=== PATIENT | female | born 1945 | race African-American/Black ===

== ENCOUNTER 2018-10-26 07:21 | Emergency (ER) | payer MEDICARE, OTHER ==
[~2018-10-26] VITALS: Ht 167.6 cm; Wt 56.5 kg
[~2018-10-26 07:21] MED LIST: HYDR25TA PO
[2018-10-26] MEDS ORDERED: ONDANSETRON HCL 4MG/2ML INJ IV STA (08:05)
[2018-10-26] MEDS ORDERED: ASPIRIN 81MG TABLET PO ONE (08:15)
[2018-10-26 08:24] LABS: HEMATOCRIT. 36.8 % (36.0-48.0); HEMOGLOBIN. 12.1 g/dL (12.0-16.0); MEAN CORPUSCULAR HEMOGLOBIN 26.9 pg (28.0-32.0); MEAN CORPUSCULAR VOLUME 82.3 fL (81.0-99.0); PLATELET 253 x1000/uL (130-400); RED BLOOD CELL COUNT 4.48 mill/uL (4.2-5.4); RED CELL DISTRIBUTION WIDTH 18.4 % (11.6-14.6)
[2018-10-26 08:27] LABS: CHLORIDE 108 mEq/L (98-107)
[2018-10-26 08:53] LABS: PLATELET ESTIMATE NORMAL
[2018-10-26] MEDS ORDERED: KETOROLAC 15MG/ML VIAL IV ONE (09:15)
[2018-10-26 12:15] VITALS: BP 126/79
== END 2018-10-26 12:16 | disposition home or self-care (01) ==
LOC: ER 07:45
DX: R07.89 Other chest pain (principal); B34.9 Viral infection, unspecified; I10 Essential (primary) hypertension; Z86.73 Personal history of transient ischemic attack (TIA), and cerebral infarction without residual deficits; Z98.890 Other specified postprocedural states; Z88.5 Allergy status to narcotic agent; Z91.040 Latex allergy status; Z79.899 Other long term (current) drug therapy
CPT/HCPCS: 36415; 71045; 80053; 83880; 84484; 85025; 87804; 93005; 96374; 99284; J1885; J2405

== ENCOUNTER 2020-09-21 12:11 | Emergency (ER) | payer OTHER ==
[~2020-09-21] VITALS: Ht 172.7 cm; Wt 59.0 kg
[2020-09-21] MEDS ORDERED: ACETAMINOPHEN 500MG TABLET PO ONE (13:45)
[2020-09-21] MEDS ORDERED: TOPUD MT (15:03)
[2020-09-21 15:21] VITALS: BP 162/99
== END 2020-09-21 15:21 | disposition home or self-care (01) ==
LOC: ER 12:11
DX: S39.012A Strain of muscle, fascia and tendon of lower back, initial encounter (principal); I10 Essential (primary) hypertension; Z88.0 Allergy status to penicillin; Z91.040 Latex allergy status; Z88.5 Allergy status to narcotic agent; Z98.890 Other specified postprocedural states; W18.30XA Fall on same level, unspecified, initial encounter; Y93.89 Activity, other specified; Y92.89 Other specified places as the place of occurrence of the external cause; Y99.8 Other external cause status
CPT/HCPCS: 72100; 93005; 99283

== ENCOUNTER 2020-11-22 15:44 | Inpatient (IN) | payer OTHER ==
[~2020-11-22] VITALS: Ht 170.2 cm; Wt 52.2 kg
[~2020-11-22 15:44] MED LIST changes: +TOPUD MT
[2020-11-22 19:05] LABS: BASOPHILS % 0.3 % (0.0-2.0); EOSINOPHILS % 1.2 % (0.0-5.0); LYMPHOCYTES % 31.5 % (20.0-50.0); MEAN CORPUSCULAR HEMOGLOBIN 34.5 pg (28.0-32.0); MEAN CORPUSCULAR VOLUME 99.3 fL (81.0-99.0); MEAN PLATELET VOLUME 8.7 fl (7.4-10.4); PLATELET 181 x1000/uL (130-400); RED BLOOD CELL COUNT 1.79 mill/uL (4.2-5.4); RED CELL DISTRIBUTION WIDTH 41.8 % (11.6-14.6)
[2020-11-22 19:11] LABS: CHLORIDE 107 mEq/L (98-107)
[2020-11-22 19:14] LABS: INR 1.1; PROTHROMBIN TIME 11.4 sec (9.6-11.0)
[2020-11-22 19:17] LABS: HEMATOCRIT. 17.8 % (36.0-48.0); HEMOGLOBIN. 6.2 g/dL (12.0-16.0)
[2020-11-22 19:40] LABS: PLATELET ESTIMATE NORMAL
[2020-11-22 20:40] LABS: TOTAL IRON BINDING CAPACITY 167 ug/dL (250-450)
[2020-11-23] VITALS (11 sets, daily range): BP systolic 111–151; BP diastolic 63–89
[2020-11-23] MEDS: PANTOPRAZOLE 40MG DR TABLET PO SCH (06:46)
[2020-11-23 06:56] LABS: MEAN CORPUSCULAR VOLUME 98.3 fL (81.0-99.0); MEAN PLATELET VOLUME 8.9 fl (7.4-10.4); PLATELET 156 x1000/uL (130-400); RED BLOOD CELL COUNT 2.11 mill/uL (4.2-5.4); RED CELL DISTRIBUTION WIDTH 36.3 % (11.6-14.6)
[2020-11-23 07:08] LABS: HEMATOCRIT. 20.7 % (36.0-48.0)
[2020-11-23] MEDS: POTASSIUM CHLORIDE 20MEQ TABLET SR PO SCH (08:33)
[2020-11-23] MEDS ORDERED: DIPHENHYDRAMINE 50MG/ML VIAL IV PRN (15:30)
[2020-11-23] MEDS ORDERED: BISACODYL 10MG SUPP PR PRN (15:30)
[2020-11-23] MEDS ORDERED: LORAZEPAM 2MG/ML CPJ IV PRN (15:30)
[2020-11-23] MEDS ORDERED: IPRATROPIUM/ALBUTEROL 0.5-3(2.5)MG/3ML NEB HHN PRN (15:30)
[2020-11-23] MEDS ORDERED: ONDANSETRON HCL 4MG/2ML INJ IV PRN (15:30)
[2020-11-23 15:38] LABS: CLARITY URINE CLEAR (CLEAR); COLOR URINE YELLOW (YELLOW); KETONES URINE NEGATIVE (NEGATIVE); LEUKOCYTE ESTERASE URINE NEGATIVE (NEGATIVE); NITRITE URINE NEGATIVE (NEGATIVE); OCCULT BLOOD URINE NEGATIVE (NEGATIVE); PH URINE 7.5 (4.5-8.0); PROTEIN URINE NEGATIVE (NEGATIVE); SPECIFIC GRAVITY URINE 1.012 (1.005-1.030)
[2020-11-23] MEDS: DEXT 5%/0.45% NACL KCL 20MEQ/L 1,000 ML IV SCH (17:54)
[2020-11-23 18:13] LABS: HEMATOCRIT 22.9 % (36.0-48.0)
[2020-11-23 18:17] LABS: CHLORIDE 108 mEq/L (98-107)
[2020-11-23 18:25] LABS: LDL CHOLESTEROL 77 mg/dL (5-100); TOTAL IRON BINDING CAPACITY 199 ug/dL (250-450)
[2020-11-23 18:26] LABS: HDL CHOLESTEROL 47 mg/dL (40-59)
[2020-11-23 18:48] LABS: VITAMIN B12 SERUM < 60 pg/mL (211-911)
[2020-11-23] MEDS ORDERED: LACTULOSE 20G/30ML UDC PO PRN (21:00)
[2020-11-23] MEDS ORDERED: TEMAZEPAM 15MG CAPSULE PO PRN (21:00)
[2020-11-24] VITALS (15 sets, daily range): BP systolic 122–146; BP diastolic 74–81
[2020-11-24] MEDS: DEXT 5%/0.45% NACL KCL 20MEQ/L 1,000 ML IV SCH ×2 (06:50→18:44)
[2020-11-24] MEDS: PANTOPRAZOLE 40MG DR TABLET PO SCH (07:02)
[2020-11-24] MEDS ORDERED: LIDOCAINE HCL 1% 20ML VIAL (Pyxis) INJ ONE (07:36)
[2020-11-24] MEDS ORDERED: IOHEXOL-300 100 ML BOTTLE ONE (07:36)
[2020-11-24] MEDS ORDERED: CLINDAMYCIN 600MG PREMIX 50 ML IV NR (08:00)
[2020-11-24] MEDS: POTASSIUM CHLORIDE 20MEQ TABLET SR PO SCH (09:55)
[2020-11-24 11:02] LABS: PLATELET ESTIMATE NORMAL
[2020-11-24] MEDS: ACETAMINOPHEN 325MG TABLET PO PRN (12:29)
[2020-11-24] MEDS ORDERED: LACTULOSE 20G/30ML UDC PO SCH (16:00)
[2020-11-24] MEDS: PANTOPRAZOLE SODIUM 40 MG/VIAL IV SCH (16:18)
[2020-11-25] VITALS (10 sets, daily range): BP systolic 123–159; BP diastolic 72–89
[2020-11-25 07:18] LABS: INR 1.1; PARTIAL THROMBOPLASTIN TIME 25.8 sec (23.4-31.0); PROTHROMBIN TIME 11.9 sec (9.6-11.0)
[2020-11-25 07:33] LABS: CHLORIDE 110 mEq/L (98-107)
[2020-11-25 08:01] LABS: HEMATOCRIT. 22.5 % (36.0-48.0); HEMOGLOBIN. 7.8 g/dL (12.0-16.0); MEAN CORPUSCULAR HEMOGLOBIN 32.8 pg (28.0-32.0); MEAN PLATELET VOLUME 8.9 fl (7.4-10.4); PLATELET 111 x1000/uL (130-400); RED BLOOD CELL COUNT 2.37 mill/uL (4.2-5.4); RED CELL DISTRIBUTION WIDTH 32.7 % (11.6-14.6)
[2020-11-25] MEDS: PANTOPRAZOLE SODIUM 40 MG/VIAL IV SCH ×2 (08:36→17:00)
[2020-11-25] MEDS: POTASSIUM CHLORIDE 20MEQ TABLET SR PO SCH (08:36)
[2020-11-25] MEDS: DEXT 5%/0.45% NACL KCL 20MEQ/L 1,000 ML IV SCH ×2 (08:37→22:07)
[2020-11-25 13:51] LABS: PLATELET ESTIMATE DECREASED
[2020-11-25] MEDS ORDERED: PROPOFOL 200MG/20ML VIAL IV ONE (16:41)
[2020-11-25] MEDS ORDERED: LIDOCAINE HCL/PF 1% 10 MG/ML 5ML VIAL ONE (16:41)
[2020-11-25 21:29] LABS: HEMATOCRIT 26.5 % (36.0-48.0); HEMOGLOBIN 9.5 g/dL (12.0-16.0)
[2020-11-26] VITALS: BP 126/96
[2020-11-26 04:00] VITALS: BP 143/86
[2020-11-26 06:07] LABS: CHLORIDE 107 mEq/L (98-107)
[2020-11-26 06:23] LABS: HEMATOCRIT. 28.1 % (36.0-48.0); MEAN CORPUSCULAR HEMOGLOBIN 33.2 pg (28.0-32.0); MEAN CORPUSCULAR VOLUME 93.6 fL (81.0-99.0); MEAN PLATELET VOLUME 9.2 fl (7.4-10.4); PLATELET 95 x1000/uL (130-400); RED CELL DISTRIBUTION WIDTH 25.6 % (11.6-14.6)
[2020-11-26 08:00] VITALS: BP 149/86
[2020-11-26] MEDS: POTASSIUM CHLORIDE 20MEQ TABLET SR PO SCH (09:00)
[2020-11-26] MEDS: PANTOPRAZOLE SODIUM 40 MG/VIAL IV SCH ×2 (09:00→16:47)
[2020-11-26 12:00] VITALS: BP 142/85
[2020-11-26] MEDS: DEXT 5%/0.45% NACL KCL 20MEQ/L 1,000 ML IV SCH (12:07)
[2020-11-26] MEDS ORDERED: BARIUM SULFATE 176 GM SUSP.RECON ONE (13:22)
[2020-11-26] MEDS ORDERED: EZ-HD SUSPENSION(BARIUM SULFATE 340GM) PO ONE (13:22)
[2020-11-26] MEDS ORDERED: SIMETHICONE/SOD BICARB/CIT AC 1 EACH GRAN.EF.PK ONE (13:23)
[2020-11-26 16:00] VITALS: BP 170/98
[2020-11-26] MEDS: CLONIDINE 0.1MG TABLET PO PRN (16:57)
[2020-11-26] MEDS ORDERED: CYANOCOBALAMIN 1000MCG/ML VIAL IM NR (17:00)
[2020-11-26 21:28] VITALS: BP 129/76
[2020-11-27] VITALS: BP 120/72
[2020-11-27 00:14] LABS: PLATELET ESTIMATE DECREASED
[2020-11-27] MEDS: DEXT 5%/0.45% NACL KCL 20MEQ/L 1,000 ML IV SCH ×2 (00:30→17:26)
[2020-11-27 04:00] VITALS: BP 128/78
[2020-11-27 07:13] LABS: HEMATOCRIT. 27.7 % (36.0-48.0); HEMOGLOBIN. 9.7 g/dL (12.0-16.0); MEAN CORPUSCULAR VOLUME 94.5 fL (81.0-99.0); MEAN PLATELET VOLUME 9.9 fl (7.4-10.4); PLATELET 86 x1000/uL (130-400); RED BLOOD CELL COUNT 2.94 mill/uL (4.2-5.4); RED CELL DISTRIBUTION WIDTH 24.8 % (11.6-14.6)
[2020-11-27 07:23] LABS: CHLORIDE 106 mEq/L (98-107)
[2020-11-27 08:00] VITALS: BP 140/72
[2020-11-27] MEDS: PANTOPRAZOLE SODIUM 40 MG/VIAL IV SCH ×2 (09:52→17:25)
[2020-11-27] MEDS: POTASSIUM CHLORIDE 20MEQ TABLET SR PO SCH (09:52)
[2020-11-27 12:00] VITALS: BP 147/80
[2020-11-27 16:00] VITALS: BP 131/86
[2020-11-27 20:00] VITALS: BP 136/76
[2020-11-28] VITALS: BP 149/85
[2020-11-28] MEDS: DEXT 5%/0.45% NACL KCL 20MEQ/L 1,000 ML IV SCH ×2 (03:40→18:00)
[2020-11-28 04:00] VITALS: BP 151/85
[2020-11-28 06:51] LABS: HEMATOCRIT. 26.1 % (36.0-48.0); HEMOGLOBIN. 8.9 g/dL (12.0-16.0); MEAN CORPUSCULAR HEMOGLOBIN 31.8 pg (28.0-32.0); MEAN CORPUSCULAR VOLUME 93.5 fL (81.0-99.0); PLATELET 70 x1000/uL (130-400); RED BLOOD CELL COUNT 2.79 mill/uL (4.2-5.4); RED CELL DISTRIBUTION WIDTH 26.6 % (11.6-14.6)
[2020-11-28 07:02] LABS: CHLORIDE 107 mEq/L (98-107)
[2020-11-28 08:00] VITALS: BP 154/86
[2020-11-28] MEDS: POTASSIUM CHLORIDE 20MEQ TABLET SR PO SCH (09:10)
[2020-11-28] MEDS: PANTOPRAZOLE SODIUM 40 MG/VIAL IV SCH ×2 (09:10→18:00)
[2020-11-28 09:18] LABS: PLATELET ESTIMATE DECREASED
[2020-11-28 12:00] VITALS: BP 120/74
[2020-11-28 12:21] LABS: PLATELET ESTIMATE DECREASED
[2020-11-28] MEDS ORDERED: SIMETHICONE 80MG TABLET CHEW PO PRN (14:30)
[2020-11-28 20:00] VITALS: BP 174/92
[2020-11-28] MEDS: CLONIDINE 0.1MG TABLET PO PRN (21:19)
[2020-11-28] MEDS ORDERED: IPRATROPIUM/ALBUTEROL 0.5-3(2.5)MG/3ML NEB HHN NR (21:30)
[2020-11-29] VITALS: BP 132/74
[2020-11-29] MEDS: IPRATROPIUM/ALBUTEROL 0.5-3(2.5)MG/3ML NEB HHN SCH ×4 (00:35→13:25)
[2020-11-29 04:00] VITALS: BP 122/69
[2020-11-29] MEDS: DEXT 5%/0.45% NACL KCL 20MEQ/L 1,000 ML IV SCH ×2 (06:50→21:26)
[2020-11-29 08:00] VITALS: BP 110/73
[2020-11-29] MEDS: POTASSIUM CHLORIDE 20MEQ TABLET SR PO SCH (08:42)
[2020-11-29] MEDS: PANTOPRAZOLE SODIUM 40 MG/VIAL IV SCH ×2 (08:43→17:27)
[2020-11-29] MEDS ORDERED: ONDANSETRON HCL 4MG/2ML INJ IV PRN (09:15)
[2020-11-29] MEDS ORDERED: SODIUM CHLORIDE 0.9% 1,000 ML IV ONE (09:15)
[2020-11-29] MEDS ORDERED: MEPERIDINE HCL/PF 25MG/ML CPJ IV PRN (09:15)
[2020-11-29] MEDS ORDERED: MORPHINE SULFATE 2 MG/ML CPJ (NOT FOR IM USE) IV PRN (09:15)
[2020-11-29] MEDS ORDERED: HYDROMORPHONE HCL/PF 2MG/ML CPJ IV PRN (09:15)
[2020-11-29] MEDS ORDERED: FENTANYL CITRATE/PF 50MCG/ML 2ML VIAL ONE (09:49)
[2020-11-29] MEDS ORDERED: LIDOCAINE HCL 1% 20ML VIAL (Pyxis) INJ ONE (09:50)
[2020-11-29] MEDS ORDERED: PROPOFOL 200MG/20ML VIAL IV ONE (09:50)
[2020-11-29] MEDS ORDERED: ONDANSETRON HCL 4MG/2ML INJ ONE (10:01)
[2020-11-29 12:00] VITALS: BP 110/63
[2020-11-29] MEDS: ACETAMINOPHEN 325MG TABLET PO PRN (15:07)
[2020-11-29 16:00] VITALS: BP 114/70
[2020-11-29 16:38] LABS: CHLORIDE 110 mEq/L (98-107)
[2020-11-29 20:00] VITALS: BP 104/60
[2020-11-29 20:19] LABS: HEMATOCRIT. 24.7 % (36.0-48.0); HEMOGLOBIN. 8.4 g/dL (12.0-16.0); MEAN CORPUSCULAR HEMOGLOBIN 32.6 pg (28.0-32.0); MEAN CORPUSCULAR VOLUME 95.7 fL (81.0-99.0); RED BLOOD CELL COUNT 2.58 mill/uL (4.2-5.4); RED CELL DISTRIBUTION WIDTH 25.8 % (11.6-14.6)
[2020-11-29 23:13] LABS: PLATELET ESTIMATE DECREASED
[2020-11-29 23:15] LABS: MEAN PLATELET VOLUME 9.6 fl (7.4-10.4); PLATELET 51 x1000/uL (130-400)
[2020-11-30] VITALS: BP 97/58
[2020-11-30 04:00] VITALS: BP 125/71
[2020-11-30 06:46] LABS: CHLORIDE 109 mEq/L (98-107)
[2020-11-30 06:56] LABS: HEMATOCRIT. 24.4 % (36.0-48.0); HEMOGLOBIN. 8.1 g/dL (12.0-16.0); MEAN CORPUSCULAR HEMOGLOBIN 31.7 pg (28.0-32.0); MEAN CORPUSCULAR VOLUME 95.1 fL (81.0-99.0); MEAN PLATELET VOLUME 9.4 fl (7.4-10.4); RED BLOOD CELL COUNT 2.56 mill/uL (4.2-5.4); RED CELL DISTRIBUTION WIDTH 26.9 % (11.6-14.6)
[2020-11-30 08:00] VITALS: BP 118/76
[2020-11-30] MEDS: POTASSIUM CHLORIDE 20MEQ TABLET SR PO SCH (09:09)
[2020-11-30] MEDS: PANTOPRAZOLE SODIUM 40 MG/VIAL IV SCH ×2 (09:09→17:36)
[2020-11-30] MEDS: IPRATROPIUM/ALBUTEROL 0.5-3(2.5)MG/3ML NEB HHN SCH ×4 (09:54→21:22)
[2020-11-30 12:00] VITALS: BP 115/68
[2020-11-30 12:16] LABS: VITAMIN B12 SERUM 436 pg/mL (211-911)
[2020-11-30] MEDS: DEXT 5%/0.45% NACL KCL 20MEQ/L 1,000 ML IV SCH (13:12)
[2020-11-30] MEDS ORDERED: PROT40 MT (15:39)
[2020-11-30 16:00] VITALS: BP 121/66
[2020-11-30 20:00] VITALS: BP 131/79
[2020-12-01] VITALS: BP 107/69
[2020-12-01] MEDS: IPRATROPIUM/ALBUTEROL 0.5-3(2.5)MG/3ML NEB HHN SCH ×5 (00:08→16:27)
[2020-12-01 04:00] VITALS: BP 125/75
[2020-12-01 06:32] LABS: HEMATOCRIT. 24.4 % (36.0-48.0); HEMOGLOBIN. 8.3 g/dL (12.0-16.0); MEAN CORPUSCULAR HEMOGLOBIN 32.4 pg (28.0-32.0); MEAN CORPUSCULAR VOLUME 95.6 fL (81.0-99.0); RED BLOOD CELL COUNT 2.55 mill/uL (4.2-5.4); RED CELL DISTRIBUTION WIDTH 25.8 % (11.6-14.6)
[2020-12-01 06:34] LABS: CHLORIDE 111 mEq/L (98-107)
[2020-12-01 07:03] LABS: MEAN PLATELET VOLUME 9.2 fl (7.4-10.4); PLATELET 51 x1000/uL (130-400)
[2020-12-01 07:07] LABS: PLATELET ESTIMATE MARKEDLY DECREASED
[2020-12-01 08:00] VITALS: BP 126/76
[2020-12-01] MEDS ORDERED: MULTIVITAMINS,THER W-MINERALS TABLET PO SCH (09:00)
[2020-12-01 09:26] LABS: NUCLEATED RED BLOOD CELLS 1 /100 WBC
[2020-12-01 09:27] LABS: PLATELET ESTIMATE MARKEDLY DECREASED
[2020-12-01] MEDS: POTASSIUM CHLORIDE 20MEQ TABLET SR PO SCH (09:27)
[2020-12-01] MEDS: PANTOPRAZOLE SODIUM 40 MG/VIAL IV SCH (09:28)
[2020-12-01 09:29] LABS: PLATELET 48 x1000/uL (130-400)
[2020-12-01 12:00] VITALS: BP 130/74
[2020-12-01 16:50] VITALS: BP 130/74
== END 2020-12-01 18:30 | disposition home health service (06) | DRG 809 ==
LOC: ER 15:44 → 6EST 20:42 → EDBEDREQ 20:51 → ENRESERV 21:17 → 6EST 11-28 03:38
PROVIDERS: ADMIT Internal Medicine; ATTEND Internal Medicine
PROC: 30233N1 Transfusion of Nonautologous Red Blood Cells into Peripheral Vein, Percutaneous Approach (ICD-10-PCS; principal; 2020-11-22)
PROC: 06H03DZ Insertion of Intraluminal Device into Inferior Vena Cava, Percutaneous Approach (ICD-10-PCS; 2020-11-24)
PROC: B549ZZA Ultrasonography of Inferior Vena Cava, Guidance (ICD-10-PCS; 2020-11-24)
PROC: B5191ZA Fluoroscopy of Inferior Vena Cava using Low Osmolar Contrast, Guidance (ICD-10-PCS; 2020-11-24)
PROC: 0DJ08ZZ Inspection of Upper Intestinal Tract, Via Natural or Artificial Opening Endoscopic (ICD-10-PCS; 2020-11-25)
PROC: 07DQ3ZX Extraction of Sternum Bone Marrow, Percutaneous Approach, Diagnostic (ICD-10-PCS; 2020-11-29)
DX: D61.818 Other pancytopenia (principal); I82.431 Acute embolism and thrombosis of right popliteal vein; R64 Cachexia; J81.1 Chronic pulmonary edema; Z68.1 Body mass index [BMI] 19.9 or less, adult; K92.2 Gastrointestinal hemorrhage, unspecified; E44.0 Moderate protein-calorie malnutrition; D46.9 Myelodysplastic syndrome, unspecified; I10 Essential (primary) hypertension; E87.6 Hypokalemia; K22.2 Esophageal obstruction; C80.1 Malignant (primary) neoplasm, unspecified; J44.9 Chronic obstructive pulmonary disease, unspecified; F10.10 Alcohol abuse, uncomplicated; K31.89 Other diseases of stomach and duodenum; Z20.822 Contact with and (suspected) exposure to COVID-19; K75.9 Inflammatory liver disease, unspecified; Z86.79 Personal history of other diseases of the circulatory system; Z88.0 Allergy status to penicillin; Z88.5 Allergy status to narcotic agent; Z91.040 Latex allergy status; R62.7 Adult failure to thrive; D51.0 Vitamin B12 deficiency anemia due to intrinsic factor deficiency; D62 Acute posthemorrhagic anemia
CPT/HCPCS: 36415; 37191; 38220; 71101; 71250; 74176; 74220; 80048; 80053; 80061; 81003; 82607; 82728; 82746; 83540; 83550; 84443; 84484; 85014; 85018; 85025; 85044; 85049; 85060; 85097; 85384; 86340; 86703; 86850; 86900; 86920; 87426; 88313; 93005; 93306; 93970; 97116; 97162; 97530; 99291; C1769; C1880; C9113; J1200; J1644; J2405; J2704; J3010; J3420; J3490; J7040; J7517; P9016; Q9967

== ENCOUNTER 2024-07-11 10:50 | Emergency (ER) | payer MEDICARE, MEDICAID ==
[~2024-07-11] VITALS: Ht 172.7 cm; Wt 53.0 kg
[~2024-07-11 10:50] MED LIST changes: +CYCL5TAB3 MT; -HYDR25TA PO; +IBUP-2029 MT; +PROT40 MT
[2024-07-11 10:54] VITALS: O2SAT 94
[2024-07-11 10:57] VITALS: BP 111/72; PULSE 83; RESP 18; TEMP 98.3; O2SAT 96
[2024-07-11 11:34] LABS: ADD RBC MORPHOLOGY YES; BASOPHILS % 0.6 % (0.0-2.0); CHLORIDE 105 mEq/L (98-107); DIFFERENTIAL COMMENT 1; EOSINOPHILS % 0.2 % (0.0-5.0); HEMATOCRIT. 33.9 % (36.0-48.0); HEMOGLOBIN. 11.1 g/dL (12.0-16.0); LYMPHOCYTES % 17.9 % (20.0-50.0); MEAN CORPUSCULAR HEMOGLOBIN 27.4 pg (28.0-32.0); MEAN CORPUSCULAR HGB CONC 32.8 g/dL (31.0-37.0); MEAN CORPUSCULAR VOLUME 83.4 fL (81.0-99.0); MEAN PLATELET VOLUME 7.7 fl (7.4-10.4); MONOCYTES % 3.7 % (2.0-8.0); NEUTROPHILS % 77.6 % (40.0-76.0); PLATELET 365 x1000/uL (130-400); POTASSIUM 3.7 mEq/L (3.5-5.1); RED BLOOD CELL COUNT 4.07 mill/uL (4.2-5.4); RED CELL DISTRIBUTION WIDTH 24.8 % (11.6-14.6); SODIUM 142 mEq/L (136-145); WHITE BLOOD COUNT 4.3 x1000/uL (4.5-11.0)
[2024-07-11 11:35] LABS: CALCIUM 9.4 mg/dL (8.7-10.4); CARBON DIOXIDE 31 mEq/L (21-32)
[2024-07-11 11:40] LABS: CREATININE 0.5 mg/dL (0.6-1.0); GLUCOSE 92 mg/dL (70-105); UREA NITROGEN BLOOD 13 mg/dL (9-23)
[2024-07-11 12:16] LABS: ANISOCYTOSIS 4+; PLATELET ESTIMATE NORMAL
[2024-07-11] MEDS: DOCUSATE SODIUM 250MG CAPSULE PO ONE (13:16)
[2024-07-11] MEDS ORDERED: DOCU-138 MT (13:27)
[2024-07-11] MEDS: NA PHOS,M-B/NA PHOS,DI-BA ENEMA 118ML PR ONE (17:22)
== END 2024-07-11 18:36 | disposition home or self-care (01) ==
LOC: ER 10:50
DX: K59.00 Constipation, unspecified (principal); K80.20 Calculus of gallbladder without cholecystitis without obstruction; Z79.899 Other long term (current) drug therapy; Z98.890 Other specified postprocedural states
CPT/HCPCS: 36415; 74176; 80048; 85025; 99284